=== PATIENT | male | born 1965 | race Caucasian/White ===

== ENCOUNTER → 2016-12-12 | Outpatient (CLI) | payer OTHER ==
[~2016-12-12] MED LIST: ANTIVERT 25MG25 MG PO; ATARAX 25MG25 MG/TAB PO; BETASERON0.3 MG SC; CIPRO 500MG TA500 MG PO; SYNTHROID 0.10.15 MG PO; VITAMIND3 5000 PO; ZOFRAN 4MG T4 MG/TAB PO
== END ==
LOC: COL.RAD 08:54
DX: M24.841 Other specific joint derangements of right hand, not elsewhere classified (principal); M71.551 Other bursitis, not elsewhere classified, right hip; M25.551 Pain in right hip
CPT/HCPCS: A9585; J3301; Q9967

== ENCOUNTER 2017-05-18 15:36 | Emergency (ER) | payer OTHER ==
[~2017-05-18] VITALS: Ht 177.8 cm; Wt 90.9 kg
[~2017-05-18 15:36] MED LIST changes: -ATARAX 25MG25 MG/TAB PO; -VITAMIND3 5000 PO; -ZOFRAN 4MG T4 MG/TAB PO
[2017-05-18 15:38] VITALS: BP 167/91; PULSE 68; TEMP 98.7
[2017-05-18] MEDS ORDERED: ZOFRAN 4MG T4 MG/TAB PO (15:46)
[2017-05-18] MEDS ORDERED: VITAMIND3 5000 PO (15:46)
[2017-05-18 17:05] LABS: BASO % 0.3 % (0.0-2.0); EOS % 0.6 % (0-4.0); GRAN # 5.1 (1.4-6.5); GRAN % 70.1 % (42.2-75.2); HEMATOCRIT 38.7 % (42.0-52.0); HEMOGLOBIN 13.8 g/dl (13.5-18.0); LYMPH # 1.6 (1.2-3.4); LYMPH % 21.6 % (20.0-51.0); MEAN CELL VOLUME 86 fl (80.0-100.0); MEAN CORPUSCULAR HEMOGLOBIN 31 pg (27.0-31.0); MEAN CORPUSCULAR HGB CONC 36 g/dl (33.0-37.0); MEAN PLATELET VOLUME 9.8 fl (7.4-10.4); MONO # 0.5 (0.1-0.6); MONO % 7.1 % (1.7-9.3); PLATELET COUNT 206 K/mm3 (130-400); RED BLOOD COUNT 4.52 M/mm3 (4.20-5.60); REDCELL DISTRIBUTION WIDTH-CV 12.3 % (11.5-14.5); WHITE BLOOD COUNT 7.2 K/mm3 (4.8-10.8)
[2017-05-18] MEDS ORDERED: ATARAX 25MG25 MG/TAB PO (17:06)
[2017-05-18 17:27] LABS: ADJUSTED CALCIUM 9.4 mg/dL (8.4-10.2); ALBUMIN 4.5 gm/dL (3.5-5.0); BILIRUBIN,TOTAL 0.8 mg/dL (0.0-1.0); CALCIUM 9.8 mg/dL (8.4-10.2); CREATININE, serum 0.81 mg/dL (0.66-1.25); MAGNESIUM 2.2 mg/dL (1.6-2.3); POTASSIUM 4.9 mmol/L (3.4-5.0); TOTAL PROTEIN 6.9 gm/dL (6.4-8.2)
== END 2017-05-18 18:01 | disposition home or self-care (01) ==
LOC: COL.ER 15:36
PROVIDERS: Physician Assistant
DX: F41.9 Anxiety disorder, unspecified (principal); G35 Multiple sclerosis

== ENCOUNTER → 2017-06-04 | Outpatient (CLI) | payer OTHER ==
[~2017-06-04] MED LIST changes: +ATARAX 25MG25 MG/TAB PO; +VITAMIND3 5000 PO; +ZOFRAN 4MG T4 MG/TAB PO
== END ==
LOC: COL.RAD 10:41
DX: S09.90XA Unspecified injury of head, initial encounter (principal); R46.89 Other symptoms and signs involving appearance and behavior

== ENCOUNTER → 2019-05-26 | Outpatient (CLI) | payer BC | LOC: COL.RAD 08:29 | DX: M25.551 Pain in right hip (principal) | CPT/HCPCS: J3301; Q9967 ==

== ENCOUNTER 2020-05-02 13:42 | Emergency (ER) | payer BC ==
[~2020-05-02] VITALS: Ht 172.7 cm; Wt 106.8 kg
[2020-05-02 13:47] VITALS: TEMP 98.2
[2020-05-02] MEDS ORDERED: AUBAGIO14 MG PO (13:58)
[2020-05-02] MEDS ORDERED: LEXAPRO20 MG PO (13:59)
[2020-05-02] MEDS ORDERED: LYRICA 25MG CAP25 MG (14:01)
[2020-05-02 14:41] LABS: BASO # 0.1 (0.0-0.2); BASO % 0.9 % (0.0-2.0); EOS # 0.1 (0.0-0.7); GRAN % 68.7 % (42.2-75.2); HEMATOCRIT 39.2 % (42.0-52.0); HEMOGLOBIN 13.4 g/dl (13.5-18.0); LYMPH # 1.1 (1.2-3.4); LYMPH % 19.6 % (20.0-51.0); MEAN CELL VOLUME 87 fl (80.0-100.0); MEAN CORPUSCULAR HEMOGLOBIN 30 pg (27.0-31.0); MEAN CORPUSCULAR HGB CONC 34 g/dl (33.0-37.0); MEAN PLATELET VOLUME 10.6 fl (7.4-10.4); MONO # 0.6 (0.1-0.6); MONO % 9.6 % (1.7-9.3); PLATELET COUNT 163 K/mm3 (130-400); RED BLOOD COUNT 4.52 M/mm3 (4.20-5.60); REDCELL DISTRIBUTION WIDTH-CV 13.6 % (11.5-14.5)
[2020-05-02 14:57] LABS: CALCIUM 8.8 mg/dL (8.4-10.2); CREATININE, serum 0.79 (0.66-1.25); POTASSIUM 4.1 mmol/L (3.4-5.0); URIC ACID 4.8 mg/dL (3.5-8.5)
[2020-05-02 15:05] LABS: ERYTHROCYTE SEDIMENTATION RATE 6 mm/hr (0-30)
[2020-05-02] MEDS ORDERED: NORCO 325 MG-51 TAB PO (15:33)
[2020-05-02 15:51] VITALS: BP 144/92; PULSE 69
== END 2020-05-02 15:51 | disposition home or self-care (01) ==
LOC: COL.ER 13:42
PROVIDERS: Physician Assistant
DX: M25.572 Pain in left ankle and joints of left foot (principal); Z79.890 Hormone replacement therapy

== ENCOUNTER 2021-10-10 10:30 | Outpatient (RCR) | payer BC ==
[~2021-10-10 10:30] MED LIST changes: +AUBAGIO14 MG PO; +LEXAPRO20 MG PO; +LYRICA 25MG CAP25 MG; +NORCO 325 MG-51 TAB PO
== END 2021-10-12 ==
LOC: WSPT
DX: M21.371 Foot drop, right foot (principal)

== ENCOUNTER 2021-10-10 14:33 | Outpatient (RCR) | payer BC | END 2021-10-14 | disposition home or self-care (01) | LOC: MKS.ESL.PT | DX: G35 Multiple sclerosis (principal); R60.0 Localized edema; M79.89 Other specified soft tissue disorders ==

== ENCOUNTER 2021-10-12 13:20 | Outpatient (RCR) | payer BC | END 2021-10-14 | LOC: WSPT | DX: G35 Multiple sclerosis (principal); M79.89 Other specified soft tissue disorders; Z87.81 Personal history of (healed) traumatic fracture ==

== ENCOUNTER 2021-12-07 15:45 | Outpatient (RCR) | payer BC | END 2021-12-12 | disposition home or self-care (01) | LOC: MKS.ESL.PT | DX: S92.351D Displaced fracture of fifth metatarsal bone, right foot, subsequent encounter for fracture with routine healing (principal); G35 Multiple sclerosis; X58.XXXD Exposure to other specified factors, subsequent encounter ==

== ENCOUNTER 2021-12-29 13:45 | Outpatient (RCR) | payer BC | END 2022-01-12 | disposition home or self-care (01) | LOC: MKS.ESL.OT | DX: S92.351G Displaced fracture of fifth metatarsal bone, right foot, subsequent encounter for fracture with delayed healing (principal); Z96.641 Presence of right artificial hip joint ==

== ENCOUNTER 2022-01-09 15:45 | Outpatient (RCR) | payer BC | END 2022-01-12 | disposition still patient (30) | LOC: MKS.ESL.PT | DX: G35 Multiple sclerosis (principal); R60.0 Localized edema ==

== ENCOUNTER 2022-02-08 15:45 | Outpatient (RCR) | payer BC | END 2022-02-11 | disposition home or self-care (01) | LOC: MKS.ESL.PT | DX: G35 Multiple sclerosis (principal); R60.0 Localized edema ==

== ENCOUNTER 2022-03-08 12:45 | Outpatient (RCR) | payer BC | END 2022-03-14 | disposition home or self-care (01) | LOC: MKS.ESL.PT | DX: G35 Multiple sclerosis (principal) ==

== ENCOUNTER 2022-03-29 07:52 | Outpatient (RCR) | payer BC | END 2022-04-13 | LOC: MKS.ESL.PT | DX: G35 Multiple sclerosis (principal); R60.0 Localized edema; Z87.81 Personal history of (healed) traumatic fracture ==

== ENCOUNTER 2022-05-10 08:00 | Outpatient (RCR) | payer BC | END 2022-05-14 | disposition home or self-care (01) | LOC: MKS.ESL.PT | DX: G35 Multiple sclerosis (principal); R60.0 Localized edema ==

== ENCOUNTER 2022-05-19 08:53 | Outpatient (RCR) | payer BC | END 2022-06-14 | disposition home or self-care (01) | LOC: MKS.ESL.PT | DX: G35 Multiple sclerosis (principal); R60.0 Localized edema ==

== ENCOUNTER 2022-12-07 10:32 | Outpatient (RCR) | payer BC | END 2022-12-07 10:56 | LOC: MKS.ESL.PT 10:32 | DX: G35 Multiple sclerosis (principal); R60.0 Localized edema ==

== ENCOUNTER → 2023-01-04 | Outpatient (CLI) | payer BC | LOC: COL.RAD 09:35 | DX: M48.061 Spinal stenosis, lumbar region without neurogenic claudication (principal); M51.27 Other intervertebral disc displacement, lumbosacral region ==

== ENCOUNTER → 2023-01-10 | Outpatient (CLI) | payer BC | LOC: MHCPAIN 16:01 | DX: G81.90 Hemiplegia, unspecified affecting unspecified side (principal); G35 Multiple sclerosis; Q76.49 Other congenital malformations of spine, not associated with scoliosis; M51.36 Other intervertebral disc degeneration, lumbar region | CPT/HCPCS: G0463 ==

== ENCOUNTER → 2023-01-12 | Outpatient (RCR) | payer BC | END | disposition home or self-care (01) | LOC: MKS.ESL.PT → MKS.ESL.OT 01-13 13:45 → MKS.ESL.PT 16:00 | DX: G35 Multiple sclerosis (principal) ==

== ENCOUNTER 2023-02-07 15:30 | Outpatient (RCR) | payer BC | END 2023-02-11 | disposition home or self-care (01) | LOC: MKS.ESL.PT | DX: G35 Multiple sclerosis (principal) ==

== ENCOUNTER → 2023-12-17 10:57 | Outpatient (RCR) | payer BC | LOC: MKS.ESL.PT 08-22 13:45 | DX: G35 Multiple sclerosis (principal) ==